=== PATIENT | male | born 1945 | race Caucasian/White ===

== ENCOUNTER → 2021-02-02 | Outpatient (CLI) | payer BC ==
[~2021-02-02] MED LIST: ELIQUIS5 MG PO; FLONASE 0.05% N16 GM; PERCOCET 5-3251 EACH PO; PERCOCET 5/325 T1 EA PO; PROTONIX40 MG PO; REMERON30 MG PO; SINGULAIR10 MG PO; SYNTHROID75 MCG PO; ZETIA 10 MG TAB10 MG PO; ZOCOR20 MG PO; ZOFRAN ODT 4 MG4 MG GT
== END ==
LOC: RT 11:45
DX: Z01.810 Encounter for preprocedural cardiovascular examination (principal)
CPT/HCPCS: 93005

== ENCOUNTER → 2021-03-24 | Outpatient (CLI) | payer BC | LOC: ECHO 11:59 | DX: I51.9 Heart disease, unspecified (principal); I34.0 Nonrheumatic mitral (valve) insufficiency; I51.7 Cardiomegaly | CPT/HCPCS: ECHO; 93306 ==

== ENCOUNTER → 2021-04-28 | Outpatient (CLI) | payer BC ==
[~2021-04-28] VITALS: Ht 182.9 cm; Wt 86.2 kg
== END ==
LOC: OPSV 07:56
DX: Z01.818 Encounter for other preprocedural examination (principal); Z88.0 Allergy status to penicillin
CPT/HCPCS: G0463; J2540

== ENCOUNTER → 2021-05-19 | Outpatient (CLI) | payer MEDICARE, BC ==
[~2021-05-19] MED LIST changes: +CARBIDOPA-LEVO1 EA14 PO; +FLUTICASONE SPRAY; +LEVOTHYROXINE75 MC1 PO; +LISINOPRIL10 MG PO; +ZETIA10 MG PO
[2021-05-19 13:24] LABS: HEMOGLOBIN 16.4 gm/dl (14.0-17.5); WHITE BLOOD COUNT 12.8 K/UL (4.5-11.0)
== END ==
LOC: OPSV2 12:00 → EDSTATUS 12:00 → OPSV2 12:18
PROVIDERS: Orthopaedic Surgery
DX: Z01.818 Encounter for other preprocedural examination (principal); M17.11 Unilateral primary osteoarthritis, right knee
CPT/HCPCS: 71046; 80048; 81001; 85025; 87081; 93005

== ENCOUNTER → 2021-05-31 | Outpatient (CLI) | payer MEDICARE, BC ==
[~2021-05-31] MED LIST changes: +ENDOCET 7.5-321 EACH PO
[2021-05-31 12:11] LABS: BUN/CREATININE RATIO 17 (0-10)
== END ==
LOC: LAB 10:42
PROVIDERS: Orthopaedic Surgery
DX: Z01.812 Encounter for preprocedural laboratory examination (principal)
CPT/HCPCS: 36415; 80048; 85610; 85730; 86850; 86900; 86901

== ENCOUNTER 2021-06-01 07:06 | Day surgery (SDC) | payer MEDICARE, BC ==
[~2021-06-01] VITALS: Ht 182.9 cm; Wt 81.6 kg
[~2021-06-01 07:06] MED LIST changes: -ENDOCET 7.5-321 EACH PO
[2021-06-01] MEDS ORDERED: ENDOCET 7.5-321 EACH PO (10:35)
[2021-06-02 07:05] LABS: HEMOGLOBIN 11.7 gm/dl (14.0-17.5); RED BLOOD COUNT 3.63 M/UL (4.20-5.50); WHITE BLOOD COUNT 10.3 K/UL (4.5-11.0)
[2021-06-02 07:47] LABS: BUN/CREATININE RATIO 22 (0-10)
[2021-06-02] MEDS ORDERED: ENDOCET 7.5-321 EACH PO (15:18)
== END 2021-06-02 15:15 | disposition home or self-care (01) ==
LOC: OR 07:06 → EDSTATUS 11:00 → M/S 12:41 → OR 06-02 15:15
PROVIDERS: Orthopaedic Surgery
DX: M17.11 Unilateral primary osteoarthritis, right knee (principal); I11.9 Hypertensive heart disease without heart failure; G20 Parkinson's disease; I82.403 Acute embolism and thrombosis of unspecified deep veins of lower extremity, bilateral; I25.10 Atherosclerotic heart disease of native coronary artery without angina pectoris; E78.5 Hyperlipidemia, unspecified; G47.33 Obstructive sleep apnea (adult) (pediatric); K21.9 Gastro-esophageal reflux disease without esophagitis; F41.9 Anxiety disorder, unspecified; E03.9 Hypothyroidism, unspecified; Z85.46 Personal history of malignant neoplasm of prostate; Z95.0 Presence of cardiac pacemaker; Z88.0 Allergy status to penicillin; Z88.1 Allergy status to other antibiotic agents; Z88.8 Allergy status to other drugs, medicaments and biological substances; Z79.01 Long term (current) use of anticoagulants; Z79.899 Other long term (current) drug therapy; Z80.0 Family history of malignant neoplasm of digestive organs
CPT/HCPCS: 73560; 80048; 85027; 93005; 97116-GP-CQ; 97161; 97166; 97535; C1776; J0171; J0690; J1100; J1170; J1885; J2001; J2270; J2370; J2405; J2704; J2795; J3010; J3370; J7120

== ENCOUNTER 2021-06-05 23:14 | Emergency (ER) | payer MEDICARE, BC ==
[~2021-06-05 23:14] MED LIST changes: +ENDOCET 7.5-321 EACH PO
[2021-06-06 00:56] LABS: HEMOGLOBIN 9.9 gm/dl (14.0-17.5); RED BLOOD COUNT 3.13 M/UL (4.20-5.50); WHITE BLOOD COUNT 7.1 K/UL (4.5-11.0)
[2021-06-06] MEDS ORDERED: PERCOCET 5-3251 EACH PO (03:02)
== END 2021-06-06 04:16 | disposition home or self-care (01) ==
LOC: ER1 23:14
PROVIDERS: Physician Assistant Medical
DX: M96.840 Postprocedural hematoma of a musculoskeletal structure following a musculoskeletal system procedure (principal); I11.9 Hypertensive heart disease without heart failure; Z96.651 Presence of right artificial knee joint; Z86.718 Personal history of other venous thrombosis and embolism; Z79.01 Long term (current) use of anticoagulants; Z88.0 Allergy status to penicillin
CPT/HCPCS: 73564; 80053; 85025; 85610; 85652; 86140; 87040; 93971; 99284